=== PATIENT | female | born 1990 | race African-American/Black ===

== ENCOUNTER 2020-03-19 02:45 | Emergency (ER) | payer OTHER, MEDICAID ==
[~2020-03-19] VITALS: Ht 170.2 cm; Wt 72.6 kg
[2020-03-19 02:50] VITALS: BP 137/89
[2020-03-19 02:53] VITALS: BP 137/89
--- NOTE | 2020-03-19 02:53 | NUR ---
see complete assessment
--- NOTE | 2020-03-19 02:53 | NUR ---
COLBY DE LA TORRE to chair c
--- NOTE | 2020-03-19 03:18 | NUR ---
pt discharged back to [facility] officer Lilia # [id number] custody. vss. education given. opportunity to ask questions given.
== END 2020-03-19 03:19 ==
LOC: MED 02:45
DX: F10.99 Alcohol use, unspecified with unspecified alcohol-induced disorder (principal); V89.2XXA Person injured in unspecified motor-vehicle accident, traffic, initial encounter; Y93.89 Activity, other specified; Y92.89 Other specified places as the place of occurrence of the external cause; Y99.8 Other external cause status
CPT/HCPCS: 99283